=== PATIENT | female | born 1950 | race Caucasian/White ===

== ENCOUNTER 2016-12-08 | Outpatient (CLI) | payer MEDICARE, OTHER | END 2016-12-08 07:19 | disposition critical access hospital (66) | CPT/HCPCS: A0425; A0429 ==

== ENCOUNTER 2016-12-08 07:45 | Inpatient (IN) | payer MEDICARE, OTHER ==
[2016-12-08] MEDS ORDERED: LACTULOSE 10 GM/15 ML BOTTLE PR STA (09:29)
[2016-12-08] MEDS ORDERED: cefTRIAXone 1 GM in SODIUM CHLORIDE 0.9% MINIBAG 100 ML IV STA (09:39)
[2016-12-08] MEDS ORDERED: LACTULOSE 10 GM /15 ML UDC ONE (09:40)
[2016-12-08] MEDS ORDERED: cefTRIAXone 1 GM VIAL ONE (10:10)
[2016-12-08] MEDS ORDERED: SODIUM CHLORIDE FLUSH 0.9% 10 ML SYRINGE IVP PRN (10:26)
[2016-12-08] MEDS: INSULIN ASPART 300 UNIT/3 ML PEN SUBQ SCH ×3 (12:46→22:30)
[2016-12-08] MEDS: SODIUM CHLORIDE 0.9% 1,000 ML IV SCH ×2 (12:46→20:01)
[2016-12-08] MEDS: LACTULOSE 10 GM/15 ML BOTTLE PR SCH ×2 (14:13→18:49)
[2016-12-08] MEDS: SODIUM CHLORIDE FLUSH 0.9% 10 ML SYRINGE IVP SCH ×2 (16:01→22:31)
[2016-12-09] MEDS ORDERED: LACTULOSE 10 GM /15 ML UDC PO SCH (06:00)
[2016-12-09] MEDS: SODIUM CHLORIDE FLUSH 0.9% 10 ML SYRINGE IVP SCH (06:20)
[2016-12-09] MEDS: INSULIN ASPART 300 UNIT/3 ML PEN SUBQ SCH ×2 (08:10→12:29)
[2016-12-09] MEDS: SODIUM CHLORIDE 0.9% 1,000 ML IV SCH (08:11)
[2016-12-09] MEDS ORDERED: cefTRIAXone 1 GM in SODIUM CHLORIDE 0.9% MINIBAG 100 ML IV SCH (09:00)
== END 2016-12-09 13:28 | disposition home or self-care (01) | DRG 642 ==
DX: E72.20 Disorder of urea cycle metabolism, unspecified (principal); R41.82 Altered mental status, unspecified; R79.89 Other specified abnormal findings of blood chemistry; D64.9 Anemia, unspecified; N28.9 Disorder of kidney and ureter, unspecified; R40.20 Unspecified coma; N39.0 Urinary tract infection, site not specified; I13.0 Hypertensive heart and chronic kidney disease with heart failure and stage 1 through stage 4 chronic kidney disease, or unspecified chronic kidney disease; N17.9 Acute kidney failure, unspecified; N18.4 Chronic kidney disease, stage 4 (severe); Z79.899 Other long term (current) drug therapy; K71.10 Toxic liver disease with hepatic necrosis, without coma; T39.1X1D Poisoning by 4-Aminophenol derivatives, accidental (unintentional), subsequent encounter; E11.65 Type 2 diabetes mellitus with hyperglycemia; E11.43 Type 2 diabetes mellitus with diabetic autonomic (poly)neuropathy; K31.84 Gastroparesis; E11.42 Type 2 diabetes mellitus with diabetic polyneuropathy; E11.22 Type 2 diabetes mellitus with diabetic chronic kidney disease; I50.9 Heart failure, unspecified; E11.51 Type 2 diabetes mellitus with diabetic peripheral angiopathy without gangrene; M79.7 Fibromyalgia; M19.90 Unspecified osteoarthritis, unspecified site; G47.33 Obstructive sleep apnea (adult) (pediatric); J44.9 Chronic obstructive pulmonary disease, unspecified; G25.81 Restless legs syndrome; Z90.5 Acquired absence of kidney; Z79.4 Long term (current) use of insulin; Z79.891 Long term (current) use of opiate analgesic; Z96.652 Presence of left artificial knee joint; Z79.51 Long term (current) use of inhaled steroids; Z87.891 Personal history of nicotine dependence; Z78.1 Physical restraint status

== ENCOUNTER 2017-01-27 10:09 | Outpatient (CLI) | payer MEDICARE, OTHER | END 2017-01-27 10:10 | disposition critical access hospital (66) | DX: R46.4 Slowness and poor responsiveness (principal) | CPT/HCPCS: A0425; A0427 ==

== ENCOUNTER 2017-01-27 10:36 | Emergency (ER) | payer MEDICARE, OTHER ==
[2017-01-27] MEDS ORDERED: LACTULOSE 10 GM /15 ML UDC PO STA (12:51)
[2017-01-27] MEDS ORDERED: LACTULOSE 10 GM /15 ML UDC ONE (13:10)
[2017-01-27] MEDS ORDERED: cefTRIAXone 1 GM VIAL IM STA (13:14)
[2017-01-27] MEDS ORDERED: cefTRIAXone 1 GM VIAL ONE (13:15)
[2017-01-27] MEDS ORDERED: LIDOCAINE-MPF 1% 5 ML VIAL ONE (13:16)
== END 2017-01-27 13:26 | disposition home or self-care (01) ==
DX: K72.90 Hepatic failure, unspecified without coma (principal); R41.82 Altered mental status, unspecified; N39.0 Urinary tract infection, site not specified; K76.0 Fatty (change of) liver, not elsewhere classified; T47.3X6A Underdosing of saline and osmotic laxatives, initial encounter; Z91.128 Patient's intentional underdosing of medication regimen for other reason; I10 Essential (primary) hypertension; J45.909 Unspecified asthma, uncomplicated; G47.30 Sleep apnea, unspecified; K21.9 Gastro-esophageal reflux disease without esophagitis; M79.7 Fibromyalgia; E10.42 Type 1 diabetes mellitus with diabetic polyneuropathy; Z79.4 Long term (current) use of insulin; Z87.891 Personal history of nicotine dependence
CPT/HCPCS: 36415; 80053; 80306; 80307; 81001; 82140; 83690; 83735; 85025; 87086; 96372; 99283; 99284; G0480

== ENCOUNTER 2017-05-02 12:06 | Outpatient (CLI) | payer MEDICARE, OTHER | END 2017-05-02 12:07 | disposition short-term general hospital (02) | LOC: EMS 12:06 | PROVIDERS: ATTEND Surgery | DX: R40.1 Stupor (principal) | CPT/HCPCS: A0425; A0429 ==

== ENCOUNTER 2017-05-10 06:22 | Outpatient (CLI) | payer MEDICARE, OTHER | END 2017-05-10 06:23 | disposition short-term general hospital (02) | LOC: EMS 06:22 | PROVIDERS: ATTEND Surgery | DX: R40.20 Unspecified coma (principal) | CPT/HCPCS: A0425; A0427 ==

== ENCOUNTER 2017-05-15 04:17 | Outpatient (CLI) | payer MEDICARE, OTHER | END 2017-05-15 04:18 | disposition short-term general hospital (02) | LOC: EMS 04:17 | PROVIDERS: ATTEND Surgery | DX: R53.83 Other fatigue (principal); R53.1 Weakness | CPT/HCPCS: A0425; A0427 ==

== ENCOUNTER 2017-05-30 13:09 | Outpatient (CLI) | payer MEDICARE, OTHER | END 2017-05-30 13:10 | disposition home or self-care (01) | DX: N05.9 Unspecified nephritic syndrome with unspecified morphologic changes (principal); I50.32 Chronic diastolic (congestive) heart failure ==

== ENCOUNTER 2017-07-11 12:04 | Outpatient (CLI) | payer MEDICARE, OTHER | END 2017-07-11 12:05 | disposition short-term general hospital (02) | LOC: EMS 12:04 | PROVIDERS: ATTEND Surgery | DX: R40.4 Transient alteration of awareness (principal) | CPT/HCPCS: A0425; A0429 ==

== ENCOUNTER 2017-08-06 13:46 | Outpatient (CLI) | payer MEDICARE, OTHER | END 2017-08-06 13:47 | disposition short-term general hospital (02) | LOC: EMS 13:46 | PROVIDERS: ATTEND Surgery | DX: R46.4 Slowness and poor responsiveness (principal) | CPT/HCPCS: A0425; A0427 ==

== ENCOUNTER 2017-08-25 15:46 | Emergency (ER) | payer MEDICARE, OTHER ==
[2017-08-25 15:57] VITALS: BP 132/56
[2017-08-25] MEDS ORDERED: BACITRACIN OINT TOP STA (16:51)
--- NOTE | 2017-08-25 16:53 | ED Physician Documentation ---
PD HPI LOWER EXT INJURY - Stated complaint Stated Complaint: WOUND CHECK - Chief complaint Chief Complaint: Ext Problem - History obtained from History obtained from: Patient - History of Present Illness PD HPI LOW EXT INJURY LOCATION: Right, Foot - Additional information Additional information: The patient is a 67-year-old female who pulled a callus off the lateral aspect of her right foot this morning, and presents now because of persistent bleeding at the site. She has a history of insulin-dependent diabetes, with diabetic neuropathy. She also has history of diabetic nephropathy. She does not take anticoagulant medication. Review of Systems Constitutional: denies: Fever Respiratory: denies: Cough GI: denies: Nausea, Vomiting Musculoskeletal: reports: Other (Bleeding from the site of a callus removal on her foot.). denies: Extremity pain Neurologic: reports: Numbness (Diabetic peripheral neuropathy.) PD PAST MEDICAL HISTORY - Past Medical History Cardiovascular: Hypertension Respiratory: Asthma, Sleep apnea, CPAP use Neuro: Peripheral neuropathy, Other Endocrine/Autoimmune: Type 1 diabetes, Other GI: GERD, Chronic diarrhea, Chronic constipation : Incontinence, Chronic bladder infection HEENT: Chronic sinusitis Musculoskeletal: Fibromyalgia, Fatigue - Past Surgical History Past Surgical History: Yes General: Cholecystectomy Ortho: Knee replacement, Rotator cuff repair, Carpal Tunnel surgery /[employer]ERAPIST: Tubal ligation HEENT: Cataracts - Present Medications Home Medications: Ambulatory Orders Medication Instructions Recorded Confirmed Allopurinol 1 tab PO DAILY 08/25/17 08/25/17 Colchicine 1 tab PO DAILY 08/25/17 08/25/17 Ferrous Sulfate 1 tab PO BID 08/25/17 08/25/17 Furosemide 1 tab PO BID 08/25/17 08/25/17 Insulin Aspart [Novolog Flexpen] 1 unit PO TID 08/25/17 08/25/17 Insulin Regular, Human [Humulin R 12 unit PO DAILY 08/25/17 08/25/17 U-500] Ipratropium [place] [Atrovent Hfa] 1 tab PO PRN PRN 08/25/17 08/25/17 Lactulose 30 ml PO TID 08/25/17 08/25/17 Metolazone 1 tab PO BID 08/25/17 08/25/17 Ondansetron [Zuplenz] 1 tab PO PRN PRN 08/25/17 08/25/17 Pantoprazole [Protonix] 1 tab PO BID 08/25/17 08/25/17 Potassium Chloride [Klor-Con 10] 1 tab PO DAILY 08/25/17 08/25/17 Propranolol [Inderal] 1 tab PO BID 08/25/17 08/25/17 Tolterodine Tartrate [Detrol LA] 1 tab PO DAILY 08/25/17 08/25/17 diphenhydrAMINE [Benadryl] 2 tab PO DAILY 08/25/17 08/25/17 oxyCODONE [Roxicodone] 2 tab PO DAILY 08/25/17 08/25/17 rifAXIMin [Xifaxan] 1 tab PO BID 08/25/17 08/25/17 - Allergies Allergies/Adverse Reactions: Allergies Allergy/AdvReac Type Severity Reaction Status Date / Time duloxetine HCl * Allergy Unknown Verified 12/08/16 08:01 [From Cymbalta] gabapentin Allergy Unknown Verified 12/08/16 08:01 nitrofurantoin Allergy Unknown Verified 12/08/16 08:01 [From Macrobid] nitrofurantoin Allergy Unknown Verified 12/08/16 08:01 macrocrystalline * [From Macrobid] pregabalin [From Lyrica] Allergy Unknown Verified 12/08/16 08:01 acetaminophen AdvReac Itching Verified 08/25/17 16:20 - Social History Does the pt smoke?: No Smoking Status: Former smoker - Immunizations Immunizations are current?: Yes PD ED PE NORMAL - Vitals Vital signs reviewed: Yes (normal) - General General: Alert and oriented X 3, Well developed/nourished - Respiratory Respiratory: No respiratory distress - Derm Derm: No rash - Extremities Extremities: No edema, No calf tenderness / cord, Other (There is a small wound of about one half centimeter by 1 mm on the lateral aspect of the right distal foot. There is no bleeding from the wound at this time. There is no surrounding erythema or other evidence of infection. This does not appear to be a diabetic foot ulcer, but rather a tear in the skin. There is decreased light touch sensation the distal foot, consistent with diabetic neuropathy.) - Neuro Neuro: Alert and oriented X 3, No motor deficit, Other (Peripheral neuropathy in the stocking distribution. ) Results - Vitals Vitals: Oxygen O2 Source Room air PD MEDICAL DECISION MAKING - ED course Complexity details: considered differential, d/w patient ED course: The patient's presentation is significant for a superficial skin tear of the right foot and a patient with diabetic neuropathy. There is no evidence of infection, and there is no clinical indication for suture repair. I discussed with the patient the expected course of healing, symptomatic treatment and outpatient follow-up, as well as potentially worrisome signs or symptoms that should prompt reevaluation in the emergency department. Departure - Departure Disposition: 01 Home, Self Care Clinical Impression: Noninfected skin tear of right lower extremity Qualifiers: Encounter type: initial encounter Qualified Code(s): S81.811A - Laceration without foreign body, right lower leg, initial encounter Diabetic neuropathy Qualifiers: Diabetes mellitus type: type 2 Diabetes mellitus complication detail: diabetic polyneuropathy Qualified Code(s): E11.42 - Type 2 diabetes mellitus with diabetic polyneuropathy Condition: Stable Instructions: ED Avulsion Dermal Follow-Up: Christos Dunne MD [Provider Admit Priv/Credential] - Comments: Keep the wound clean, and apply antibiotic ointment daily. Follow up with your primary physician, or return to the emergency department, if you develop any sign of infection, or otherwise worsening symptoms. Discharge Date/Time: 08/25/17 16:58
== END 2017-08-25 16:58 | disposition home or self-care (01) ==
LOC: ED 15:46
DX: S81.811A Laceration without foreign body, right lower leg, initial encounter (principal); E11.42 Type 2 diabetes mellitus with diabetic polyneuropathy; I10 Essential (primary) hypertension; Z87.891 Personal history of nicotine dependence; Z79.4 Long term (current) use of insulin
CPT/HCPCS: 99282; 99283

== ENCOUNTER 2017-11-10 10:21 | Outpatient (CLI) | payer MEDICARE, OTHER | END 2017-11-10 10:22 | disposition short-term general hospital (02) | LOC: EMS 10:21 | PROVIDERS: ATTEND Surgery | DX: R41.0 Disorientation, unspecified (principal) | CPT/HCPCS: A0425; A0427 ==

== ENCOUNTER 2018-01-18 05:00 | Outpatient (CLI) | payer MEDICARE, OTHER | END 2018-01-18 05:01 | disposition short-term general hospital (02) | LOC: EMS 05:00 | PROVIDERS: ATTEND Surgery | DX: R41.82 Altered mental status, unspecified (principal) | CPT/HCPCS: A0425; A0429 ==

== ENCOUNTER 2018-03-19 20:46 | Outpatient (CLI) | payer MEDICARE, OTHER | END 2018-03-19 20:47 | disposition short-term general hospital (02) | LOC: EMS 20:46 | PROVIDERS: ATTEND Surgery | DX: R52 Pain, unspecified (principal); R41.82 Altered mental status, unspecified | CPT/HCPCS: A0425; A0427 ==

== ENCOUNTER 2018-04-12 03:09 | Outpatient (CLI) | payer MEDICARE, OTHER | END 2018-04-12 03:10 | disposition short-term general hospital (02) | LOC: EMS 03:09 | PROVIDERS: ATTEND Surgery | DX: R41.82 Altered mental status, unspecified (principal) | CPT/HCPCS: A0425; A0429 ==

== ENCOUNTER 2018-04-14 02:23 | Outpatient (CLI) | payer MEDICARE, OTHER | END 2018-04-14 02:24 | disposition short-term general hospital (02) | LOC: EMS 02:23 | PROVIDERS: ATTEND Surgery | DX: R41.82 Altered mental status, unspecified (principal) | CPT/HCPCS: A0425; A0427 ==

== ENCOUNTER 2018-09-19 21:48 | Outpatient (CLI) | payer MEDICARE, OTHER | END 2018-09-19 21:49 | disposition EMS.NT | LOC: EMS 21:48 | PROVIDERS: ATTEND Surgery | DX: R53.83 Other fatigue (principal); R53.1 Weakness; R73.09 Other abnormal glucose ==

== ENCOUNTER 2018-09-24 13:10 | Outpatient (CLI) | payer MEDICARE, OTHER | END 2018-09-24 13:11 | disposition short-term general hospital (02) | LOC: EMS 13:10 | PROVIDERS: ATTEND Surgery | DX: R53.1 Weakness (principal); R41.0 Disorientation, unspecified | CPT/HCPCS: A0425; A0429 ==

== ENCOUNTER 2018-09-30 08:02 | Outpatient (CLI) | payer MEDICARE, OTHER | END 2018-09-30 08:03 | disposition short-term general hospital (02) | LOC: EMS 08:02 | PROVIDERS: ATTEND Surgery | DX: R41.82 Altered mental status, unspecified (principal) | CPT/HCPCS: A0425; A0429 ==

== ENCOUNTER 2018-10-11 07:47 | Outpatient (CLI) | payer MEDICARE, OTHER | END 2018-10-11 07:48 | disposition short-term general hospital (02) | LOC: EMS 07:47 | PROVIDERS: ATTEND Surgery | DX: R41.82 Altered mental status, unspecified (principal) | CPT/HCPCS: A0425; A0429 ==

== ENCOUNTER 2018-10-19 11:55 | Outpatient (CLI) | payer MEDICARE, OTHER | END 2018-10-19 11:56 | disposition short-term general hospital (02) | LOC: EMS 11:55 | PROVIDERS: ATTEND Surgery | DX: R41.82 Altered mental status, unspecified (principal) | CPT/HCPCS: A0425; A0427 ==

== ENCOUNTER 2018-11-07 05:17 | Outpatient (CLI) | payer MEDICARE, OTHER | END 2018-11-07 05:18 | disposition short-term general hospital (02) | LOC: EMS 05:17 | PROVIDERS: ATTEND Surgery | DX: R45.1 Restlessness and agitation (principal) | CPT/HCPCS: A0425; A0429 ==

== ENCOUNTER 2019-01-22 06:30 | Outpatient (CLI) | payer MEDICARE, OTHER | END 2019-01-22 06:31 | disposition short-term general hospital (02) | LOC: EMS 06:30 | PROVIDERS: ATTEND Surgery | DX: R41.82 Altered mental status, unspecified (principal) | CPT/HCPCS: A0425; A0427 ==

== ENCOUNTER 2019-03-12 11:16 | Outpatient (CLI) | payer MEDICARE, OTHER | END 2019-03-12 11:17 | disposition short-term general hospital (02) | LOC: EMS 11:16 | PROVIDERS: ATTEND Surgery | DX: R10.84 Generalized abdominal pain (principal); R11.2 Nausea with vomiting, unspecified | CPT/HCPCS: A0425; A0429 ==